=== PATIENT | female | born 1970 | race Caucasian/White ===

== ENCOUNTER 2016-04-27 23:20 | Emergency (ER) | payer OTHER ==
[~2016-04-27] VITALS: Ht 167.6 cm; Wt 69.1 kg
[2016-04-27 23:32] VITALS: BP 145/85; PULSE 104; RESP 18; O2SAT 96
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
[2016-04-28] MEDS ORDERED: oxyCODONE-Acetamin 5-325 mg Tablet PO ONE (00:15)
[2016-04-28] MEDS ORDERED: Amoxicillin-Clav 875-125 mg Tablet PO ONE (00:15)
[2016-04-28] MEDS ORDERED: _oxyCODONE/APAP 5-325 mg Tablet PO PRN (00:45)
[2016-04-28 01:28] VITALS: BP 132/88; PULSE 98; RESP 16; O2SAT 96
== END 2016-04-28 01:31 | disposition home or self-care (01) ==
LOC: SED 23:20 → EDUNIT# 23:20 → SED 04-28 01:31
DX: S81.812A Laceration without foreign body, left lower leg, initial encounter (principal); W54.0XXA Bitten by dog, initial encounter; Y93.89 Activity, other specified; Y92.9 Unspecified place or not applicable; Y99.8 Other external cause status; Z88.1 Allergy status to other antibiotic agents; Z88.5 Allergy status to narcotic agent